=== PATIENT | male | born 1970 | race American Indian/Alaskan Native ===

== ENCOUNTER 2021-09-17 10:58 | Emergency (ER) | payer SELFPAY ==
[2021-09-17 17:58] VITALS: BP 142/96
[2021-09-17] MEDS ORDERED: SODIUM CHLORIDE 0.9% 1000 ML 1,000 ML IV ONE (18:18)
[2021-09-17] MEDS ORDERED: DICYCLOMINE 20 MG/2 ML INJ IM ONE (18:19)
[2021-09-17] MEDS ORDERED: ONDANSETRON 4 MG/2 ML INJ IV ONE (18:19)
[2021-09-17] MEDS ORDERED: FAMOTIDINE 20 MG/2 ML INJ IV ONE (18:19)
[2021-09-17] MEDS ORDERED: ALBUTEROL 2.5 MG/3 ML NEBU IH ONE (19:25)
--- NOTE | 2021-09-17 20:28 | Emergency Department Report ---
ED Abdominal Pain HPI - General Chief Complaint: Abdominal Pain Stated Complaint: NAUSEA/CRAMP/DIARRHEA Time Seen by Provider: 09/17/21 18:01 Source: patient Mode of arrival: Ambulatory Limitations: No Limitations - History of Present Illness Initial Comments: 51-year-old black male with a past medical history of sleep apnea and hypoglycemia presents to the emergency department for evaluation of 3-day history of nausea, vomiting, diarrhea, and abdominal cramping. He states that he ate a pesto mix from a new restaurant on Wednesday night then his stomach started to feel funny and he developed active vomiting diarrhea and abdominal cramping on Wednesday. He states that he has been unable to keep anything down. He denies fever, dysuria, and penile discharge. He states that abdominal cramping is intermittent and 8 out of 10 at its worse. MD Complaint: abdominal pain -: Gradual, days(s) (3) Location: epigastric Radiation: none Migration to: no migration Severity scale (0 -10): 8 Quality: cramping Consistency: intermittent Context: possible food poisoning Associated Symptoms: nausea, vomiting, diarrhea. denies: fever, chills, constipation, dysuria, hematemesis, hematochezia, melena, hematuria, anorexia, syncope - Related Data Previous Rx's Medication Instructions Recorded Last Taken Type Albuterol Sulfate [Proventil Hfa] 1 - 2 puff IH Q6H PRN #1 inh 08/06/21 Unknown Rx Amoxicillin/Potassium Clav 1 each PO Q12H #20 tab 08/06/21 Unknown Rx [Augmentin 875-125 Tablet] Benzonatate [Tessalon Perles] 100 mg PO Q8HR #30 cap 08/06/21 Unknown Rx Cetirizine HCl [Zyrtec 10mg tab] 10 mg PO DAILY #30 tab 08/06/21 Unknown Rx methylPREDNISolone [Medrol 4MG 4 mg PO DAILY #21 tab 08/06/21 Unknown Rx DOSEPAK (21 tabs)] Albuterol Mdi (or & Nicu Only) 2 puff IH QID PRN #8.5 gram 09/17/21 Unknown Rx [ProAir HFA Inhaler] Dicyclomine [Bentyl] 20 mg PO QID PRN #30 tablet 09/17/21 Unknown Rx Ondansetron [Zofran Odt] 4 mg PO Q8HR PRN #12 tab.rapdis 09/17/21 Unknown Rx Allergies Allergy/AdvReac Type Severity Reaction Status Date / Time No Known Allergies Allergy Verified 09/17/21 17:59 ED Review of Systems ROS: Stated complaint: NAUSEA/CRAMP/DIARRHEA Other details as noted in HPI Comment: All other systems reviewed and negative Constitutional: denies: chills, fever Eyes: denies: eye discharge, vision change ENT: denies: throat pain, dental pain, congestion Respiratory: denies: cough, orthopnea, shortness of breath, SOB with exertion, SOB at rest, stridor, wheezing Cardiovascular: denies: chest pain, palpitations, dyspnea on exertion, orthopnea, edema, syncope, paroxysmal nocturnal dyspnea Gastrointestinal: abdominal pain, nausea, vomiting, diarrhea. denies: hematemesis, melena, hematochezia Genitourinary: denies: urgency, dysuria, frequency, hematuria, discharge, testicular pain Musculoskeletal: denies: back pain, joint swelling, arthralgia, myalgia Skin: denies: rash, lesions Neurological: denies: headache, weakness, numbness, paresthesias, confusion, abnormal gait, vertigo Psychiatric: denies: anxiety Hematological/Lymphatic: denies: easy bleeding, easy bruising ED Past Medical Hx - Past Medical History Additional medical history: Chronic bronchitis; obstructive sleep apnea - Social History Smoking Status: Never Smoker Substance Use Type: None - Medications Home Medications: Home Medications Medication Instructions Recorded Confirmed Last Taken Type Albuterol Sulfate [Proventil Hfa] 1 - 2 puff IH Q6H PRN #1 inh 08/06/21 09/17/21 Unknown Rx Amoxicillin/Potassium Clav 1 each PO Q12H #20 tab 08/06/21 09/17/21 Unknown Rx [Augmentin 875-125 Tablet] Benzonatate [Tessalon Perles] 100 mg PO Q8HR #30 cap 08/06/21 09/17/21 Unknown Rx Cetirizine HCl [Zyrtec 10mg tab] 10 mg PO DAILY #30 tab 08/06/21 09/17/21 Unknown Rx methylPREDNISolone [Medrol 4MG 4 mg PO DAILY #21 tab 08/06/21 09/17/21 Unknown Rx DOSEPAK (21 tabs)] Albuterol Mdi (or & Nicu Only) 2 puff IH QID PRN #8.5 gram 09/17/21 Unknown Rx [ProAir HFA Inhaler] Dicyclomine [Bentyl] 20 mg PO QID PRN #30 tablet 09/17/21 Unknown Rx Ondansetron [Zofran Odt] 4 mg PO Q8HR PRN #12 tab.rapdis 09/17/21 Unknown Rx ED Physical Exam - General Limitations: No Limitations General appearance: alert, in no apparent distress - Head Head exam: Present: atraumatic, normocephalic - Eye Eye exam: Present: normal appearance. Absent: conjunctival injection - Neck Neck exam: Present: normal inspection, full ROM. Absent: tenderness, meningismus, lymphadenopathy - Respiratory Respiratory exam: Present: wheezes (States that he has been wheezing intermittently for several days prior to nausea and vomiting and ran out of his inhaler), chest wall tenderness. Absent: respiratory distress, rales, rhonchi, stridor - Cardiovascular Cardiovascular Exam: Present: tachycardia, normal heart sounds - GI/Abdominal GI/Abdominal exam: Present: soft, tenderness (Epigastric area), normal bowel sounds. Absent: distended, guarding, rebound, rigid - Extremities Exam Extremities exam: Present: normal inspection, full ROM, normal capillary refill. Absent: tenderness, pedal edema, joint swelling, calf tenderness - Back Exam Back exam: Present: normal inspection. Absent: CVA tenderness (R), CVA tenderness (L), paraspinal tenderness, vertebral tenderness - Neurological Exam Neurological exam: Present: alert, oriented X3, normal gait - Psychiatric Psychiatric exam: Present: normal affect, normal mood - Skin Skin exam: Present: warm, dry, intact, normal color ED Course Vital Signs 09/17/21 09/17/21 11:40 17:56 Temperature 98.0 F 98.5 F Pulse Rate 100 H 79 Respiratory 20 20 Rate Blood Pressure 105/62 142/96 [Right] O2 Sat by Pulse 99 100 Oximetry - Reevaluation(s) Reevaluation #1: 09/17/21 20:26 Wheezing mostly resolved. Nausea, vomiting, and abdominal pain completely resolved. Patient states that he feels much better. ED Medical Decision Making - Medical Decision Making 51-year-old black male with a past medical history of sleep apnea and hypoglycemia presents to the emergency department for evaluation of 3-day history of nausea, vomiting, diarrhea, and abdominal cramping. He states that he ate a pesto mix from a new restaurant on Wednesday night then his stomach started to feel funny and he developed active vomiting diarrhea and abdominal cramping on Wednesday. He states that he has been unable to keep anything down. He denies fever, dysuria, and penile discharge. He states that abdominal cramping is intermittent and 8 out of 10 at its worse. Nausea, vomiting, and abdominal cramping resolved after medication. Patient given DuoNeb and wheezing has mostly resolved. Patient states he feels better. Patient will be discharged home with Zofran and Bentyl to use as needed for nausea, vomiting, and abdominal cramping and he will also be given a refill of his albuterol inhaler. He is advised to take medications as prescribed and follow-up with primary care provider if worsening symptoms. He is advised to return to the emergency department for any concerning symptoms. He verbalizes understanding of and agreement with plan of care. Critical care attestation.: If time is entered above; I have spent that time in minutes in the direct care of this critically ill patient, excluding procedure time. ED Disposition Clinical Impression: Gastroenteritis, Wheezing Disposition: HOME / SELF CARE / HOMELESS Is pt being admited?: No Does the pt Need Aspirin: No Condition: Stable Instructions: Shortness of Breath, Adult, [id number], Viral Gastroenteritis, Adult, [id number], Food Choices to Help Relieve Diarrhea, Adult, How to Use a Metered Dose Inhaler Additional Instructions: Take medications as prescribed. Drink plenty of noncaffeinated fluids. Start with a bland, 9 spicy diet and increase as tolerated. Follow-up with primary care provider for worsening symptoms. Return to the emergency department for any concerning symptoms. Prescriptions: Dicyclomine [Bentyl] 20 mg PO QID PRN #30 tablet PRN Reason: Pain, Moderate (4-6) Albuterol Mdi (or & Nicu Only) [ProAir HFA Inhaler] 2 puff IH QID PRN #8.5 gram PRN Reason: Shortness Of Breath Ondansetron [Zofran Odt] 4 mg PO Q8HR PRN #12 tab.rapdis PRN Reason: Nausea And Vomiting Referrals: CARMEN MINER MD [Staff Physician] - 3-5 Days Forms: Work/School Release Form(ED) Time of Disposition: 20:32
== END 2021-09-17 20:52 | disposition home or self-care (01) ==
LOC: ED 10:58
DX: K52.9 Noninfective gastroenteritis and colitis, unspecified (principal); R06.2 Wheezing; G47.30 Sleep apnea, unspecified; Z79.899 Other long term (current) drug therapy
CPT/HCPCS: 94640; 96361; 96372; 96374; 96375; 99283; J0500; J2405; J3490; J7030